=== PATIENT | female | born 2000 | race Caucasian/White ===

== ENCOUNTER 2020-11-19 13:04 | Outpatient (REF) | payer BC, SELFPAY ==
[2020-11-19 15:13] LABS: MANUAL DIFF FLAG NO
[2020-11-19 15:15] LABS: Basophils Percent Auto 0.5 % (0-2); Eosinophils Absolute Auto 0.2 X10*3/uL (0.0-0.4); Eosinophils Percent Auto 2.2 % (0-4); Hematocrit 33.8 % (37-47); Hemoglobin 11.3 g/dl (12.0-16.0); Imm Gran Abs Auto 0.01 X10*3/uL (0.00-0.03); Imm Gran Pct Auto 0.1 % (0.0-0.4); Lymphocytes Absolute Auto 2.2 X10*3/uL (1.2-4.9); Lymphocytes Percent Auto 29.5 % (20-40); Mean Corpuscular HGB Conc 33.4 g/dl (31.0-35.0); Mean Corpuscular Hemoglobin 29.4 pg (27.0-33.0); Mean Platelet Volume 11.7 fL (9.4-12.3); Monocytes Absolute Auto 0.5 X10*3/uL (0.1-1.2); Monocytes Percent Auto 7.1 % (2-11); Neutrophils Absolute Auto 4.6 X10*3/uL (2.0-8.3); Neutrophils Percent Auto 60.6 % (45-73); Platelet Count 307 X10*3/uL (160-400); Red Blood Count 3.84 X10*6/uL (4.20-5.50); Red Cell Distribution Width 13.3 % (11.0-16.0); White Blood Count 7.6 X10*3/uL (4.8-10.8)
[2020-11-19 15:44] LABS: Alanine Aminotransferase 17 U/L (0-31); Albumin Level 4.3 g/dL (3.5-5.0); Alkaline Phosphatase 66 U/L (39-117); Anion Gap 12 (12-20); Aspartate Amino Transferase 14 U/L (5-31); Bilirubin Total 0.8 mg/dL (0.0-1.0); Blood Urea Nitrogen 11 mg/dL (9-16); Calcium 9.9 mg/dL (8.4-10.2); Carbon Dioxide 26 mmol/L (22-29); Chloride 106 mmol/L (96-108); Cholesterol 141 mg/dL; Estimated Glomerular Filt Rate > 60; Glucose Fasting 104 mg/dL (60-99); HDL Cholesterol 49 mg/dL; LDL Cholesterol Calculated 85 mg/dl; Potassium 4.1 mmol/L (3.3-5.1); Sodium 140 mmol/L (135-145); Total Protein 7.5 g/dL (6.5-8.0); Triglycerides 39 mg/dL
[2020-11-19 16:00] LABS: TSH reflex Free T4 0.87 uIU/mL (0.32-4.0); Vitamin D 25-OH Total 16.7 ng/mL (>30)
[2020-11-19 16:16] LABS: Folate 11.6 ng/mL (> or = 4.0); Vitamin B12 1058 pg/mL (200-900)
== END 2020-11-19 13:05 | disposition home or self-care (01) ==
LOC: HO.HMGCLDS 13:04
PROVIDERS: PCP Internal Medicine; Visit Provider Internal Medicine
DX: Z00.00 Encounter for general adult medical examination without abnormal findings (principal)
CPT/HCPCS: 36415; 80053; 80061; 82306; 82607; 82746; 84443; 85025

== ENCOUNTER 2021-03-18 12:24 | Emergency (ER) | payer BC, SELFPAY ==
[2021-03-18 12:26] VITALS: BP 109/78; PULSE 85; RESP 18; TEMP 36.8; O2SAT 99; BMI 16.1
== END 2021-03-18 14:11 | disposition left against medical advice (07) ==
PROVIDERS: Emergency Provider Emergency Medicine; PCP Internal Medicine
DX: R10.9 Unspecified abdominal pain (principal); R11.10 Vomiting, unspecified
CPT/HCPCS: 99281

== ENCOUNTER 2021-03-29 12:57 | Outpatient (REF) | payer BC, SELFPAY | END 2021-03-29 12:58 | disposition home or self-care (01) | LOC: HO.HMGCLDS 12:57 | PROVIDERS: PCP Internal Medicine; Visit Provider Internal Medicine | DX: Z20.822 Contact with and (suspected) exposure to COVID-19 (principal) | CPT/HCPCS: C9803; U0003; U0005 ==

== ENCOUNTER 2021-07-17 14:44 | Outpatient (REF) | payer BC, SELFPAY ==
[2021-07-17 15:15] LABS: Binax Internal Control QC Valid; Binax Now Covid-19 Ag Negative (Negative)
[2021-07-17 16:28] LABS: Hematocrit 36.3 % (37.0-47.0); Hemoglobin 12.1 g/dl (12.0-16.0); Mean Corpuscular HGB Conc 33.3 g/dl (31.0-35.0); Mean Corpuscular Hemoglobin 29.3 pg (27.0-33.0); Mean Corpuscular Volume 87.9 fL (80.0-98.0); Mean Platelet Volume 11.9 fL (9.4-12.3); Platelet Count 233 X10*3/uL (160-400); Red Blood Count 4.13 X10*6/uL (4.20-5.50); Red Cell Distribution Width 13.2 % (11.0-16.0)
[2021-07-17 16:40] LABS: Alanine Aminotransferase 12 U/L (0-31); Albumin Level 4.5 g/dL (3.5-5.0); Alkaline Phosphatase 79 U/L (39-117); Aspartate Amino Transferase 15 U/L (5-31); Bilirubin Direct 0.4 mg/dL (0.0-0.5); Bilirubin Total 0.8 mg/dL (0.0-1.0); Total Protein 7.8 g/dL (6.5-8.0)
[2021-07-17 17:02] LABS: Erythrocyte Sedimentation Rate 11 MM/HR (0-20)
== END 2021-07-17 14:45 | disposition home or self-care (01) ==
LOC: HO.HMGCLDS 14:44
PROVIDERS: PCP Internal Medicine; Visit Provider Internal Medicine
DX: J06.9 Acute upper respiratory infection, unspecified (principal); R50.9 Fever, unspecified
CPT/HCPCS: 80076; 84443; 85027; 85652

== ENCOUNTER 2021-10-25 12:14 | Outpatient (REF) | payer BC, SELFPAY ==
[2021-10-25 12:41] LABS: Binax Now Covid-19 Ag Negative (Negative)
[2021-10-25 12:42] LABS: Binax Internal Control QC Valid
== END 2021-10-25 12:15 | disposition home or self-care (01) ==
LOC: HO.HMGCLDS 12:14
PROVIDERS: PCP Internal Medicine; Visit Provider Physician Assistant
DX: B34.9 Viral infection, unspecified (principal); Z20.822 Contact with and (suspected) exposure to COVID-19
CPT/HCPCS: 87811; C9803

== ENCOUNTER 2022-10-21 10:26 | Emergency (ER) | payer BC, SELFPAY ==
[2022-10-21 10:28] VITALS: BP 116/71; PULSE 87; RESP 16; TEMP 35.7; O2SAT 99; BMI 16.8
--- NOTE | 2022-10-21 11:43 | ED_ITS ---
HPI - Allergic Reaction General Chief complaint: Allergic Reaction Stated complaint: allergic reaction? Time Seen by Provider: 10/21/22 11:15 Source: patient Mode of arrival: ambulatory Limitations: no limitations History of Present Illness HPI narrative: patient is a 22-year-old female who presents emergency department for evaluation of potential allergic reaction. patient states that she awoke yesterday cleans ed her face with her normal face wash and soon thereafter she went out to eat with some friends. she denies any new foods or potential allergens. She felt her face becoming itchy but did not notice any redness or swelling. Yesterday evening she noticed swelling to her cheeks in the bilateral eyes. She took oral Benadryl last night without any improvement. Today she woke with increased swelling to the bilateral eyes. She denies upper respiratory symptoms, difficulty breathing, chest pain. Denies any known allergens. Denies any new facial creams, skin care products, make- up, detergent. Related Data Home Medications Medication Instructions Recorded Confirmed ferrous sulfate 325 mg (65 mg 325 mg PO DAILY 07/17/21 07/17/21 iron) tablet (FeroSul) multivitamin 1 tab PO DAILY 10/25/21 Previous Rx's Medication Instructions Recorded cholecalciferol (vitamin D3) 1,250 1,250 mcg PO QWEEK 90 days #13 caps 02/20/21 mcg (50,000 unit) capsule benzonatate 100 mg capsule 100 mg PO BID PRN cough #14 caps 10/25/21 prednisone 20 mg tablet 40 mg PO DAILY 5 days #10 tabs 10/25/21 epinephrine 0.3 mg/0.3 mL 0.3 mg (0.3 mL) IM Q4H PRN 10/21/22 injection, auto-injector (EpiPen) anaphylaxis #2 ea loratadine 10 mg tablet 10 mg PO DAILY #10 tabs 10/21/22 prednisone 20 mg tablet 20 mg PO DAILY #5 tabs 10/21/22 Allergies Allergy/AdvReac Type Severity Reaction Status Date / Time No Known Allergies Allergy Verified 10/25/21 11:46 Review of Systems Review of Systems: Yes all other systems are reviewed and are negative PMFSH Past Medical History Attestation statement: The following information was validated with the patient. Source: old records reviewed Medical History Acne comedone Underweight Surgical History No pertinent past surgical history Social History Social History Housing: House e-Cigarette/Vaping Use: Never Used Second Hand Smoke Exposure: No Advance Directives: No Advance Directives Information Provided: Yes service: No Current occupational status: employed Current occupation: daycare Current occupational exposures/hazards: No Physical Exam ED Vital Signs: Vital Signs - 24 hr 10/21/22 10:28 Temperature 96.3 F L Pulse Rate 87 Respiratory Rate 16 Blood Pressure 116/71 Pulse Oximetry 99 Oxygen Delivery Method Room Air BMI result Body Mass Index 16.8 Appearance: Alert.?Oriented to person, place and time. No acute distress.?Normal affect. Eyes: Pupils equal, round and reactive to light. EOMI. No nystagmus.? Edema of the bilateral periorbital region ENT: TM normal bilaterally. Pharynx normal.?? Uvula midline. No trismus. No drooling Neck: Normal inspection.? Neck supple. nose cervical lymphadenopathy?? CVS: Heart sounds normal. Normal heart rate and rhythm.? Pulses normal.?? Respiratory: No respiratory distress.? Lung sounds clear to auscultation bilaterally?? Abdomen: Soft and non-tender. Normoactive bowel sounds. Skin: Skin warm and dry.? Normal skin color.? ? Extremities: No lower extremity edema.? Neuro: Moves all extremities spontaneously. Sensation intact bilaterally. CN II- XII intact. No focal neuro deficits. Ambulates with normal steady gait. Medical Decision Making Medical Decision Making MDM Narrative: Patient is a 22-year-old female presents emergency department for evaluation of bilateral eye swelling. Patient is without any foreign body sensation, no drainage from the eye, no acute trauma, lower suspicion for any corneal abrasion foreign body present. Exam is not consistent with periorbital or orbital cellulitis. Edematous upper eyelids, not consistent with acute blepharitis, appears likely to be allergy type reaction. At this time allergen is unknown. There is no respiratory compromise. She speaking clear full sentences. No indication of anaphylaxis. Discussed outpatient management with oral antihistamine in addition to course of steroids. Provided with prescription for EpiPen in strict indications on when to use and prompt evaluation in the emergency department after use. Advised outpatient follow-up with primary care provider/potential referral for decating machine operator. Reviewed worrisome signs and symptoms that would warrant re-evaluation in the emergency department. All questions answered. Stable for discharge. Differential Diagnosis Differential Diagnoses: The differential diagnosis associated with the presentation includes (Conjunctivitis, blepharitis, periorbital cellulitis, orbital cellulitis, angioedema, acute allergic reaction, anaphylaxis) Independent Historian Clinical information obtained from an independent historian. History obtained from or confirmed by: Friend (Patient's friend is present at bedside who confirms history as per patient's HPI) Prescription Management I considered prescription management with: Other (Antihistamine, EpiPen) Discharge Plan Discharge Clinical Impression: Allergic reaction Patient Disposition: Home, Self-Care Instructions: General Allergic Reaction (ED) Additional Instructions: as discussed, it is concerning that you are having a potential allergic reaction, at this time it is unclear what this to be a reaction to it. Please take loratadine and prednisone as prescribed. I have sent prescription for an EpiPen to your pharmacy, this is to be used only if you are having swelling to the face with difficulty breathing, sensation is though your throat is closing. If you need to use your EpiPen you are to come promptly to the emergency department right afterwards. Please follow-up with your primary care provider. Return back to emergency department any new or worsening symptoms or concerns. Prescriptions: New loratadine 10 mg tablet 10 mg PO DAILY Qty: 10 0RF prednisone 20 mg tablet 20 mg PO DAILY Qty: 5 0RF epinephrine [EpiPen] 0.3 mg/0.3 mL auto-injector 0.3 mg IM Q4H PRN (Reason: anaphylaxis) Qty: 2 0RF No Action cholecalciferol (vitamin D3) 1,250 mcg (50,000 unit) capsule 1,250 mcg PO QWEEK 90 Days Qty: 13 0RF multivitamin Tablet 1 tab PO DAILY prednisone 20 mg tablet 40 mg PO DAILY 5 Days Qty: 10 0RF benzonatate 100 mg capsule 100 mg PO BID PRN (Reason: cough) Qty: 14 0RF ferrous sulfate [FeroSul] 325 mg (65 mg iron) tablet 325 mg PO DAILY Interventions: ED Discharge Assessment Last Done: 10/21/22 12:04 Discharge Date/Time: 10/21/22 12:04
== END 2022-10-21 12:04 | disposition home or self-care (01) ==
PROVIDERS: Emergency Provider Student in an Organized Health Care Education/Training Program; PCP Family Medicine
DX: L50.0 Allergic urticaria (principal)
CPT/HCPCS: 99283

== ENCOUNTER 2023-02-12 19:09 | Outpatient (REF) | payer BC, SELFPAY | END 2023-02-12 19:10 | disposition home or self-care (01) | LOC: HO.CHCLNP 19:09 | PROVIDERS: Visit Provider Family Medicine | DX: Z12.4 Encounter for screening for malignant neoplasm of cervix (principal) | CPT/HCPCS: 88142 ==

== ENCOUNTER 2024-01-15 12:50 | Outpatient (AMB) | payer BC, SELFPAY ==
--- NOTE | 2024-01-15 13:09 | MHC.OFFWIV ---
Intake Vital Signs 01/15/24 13:10 Height 5 ft 3 in Weight 92 lb BMI 16.3 BP 110/68 Blood Pressure Location Lt brachial Position Sitting Pulse 80 Pulse Source Pulse Oximeter Temp 98.9 F Temp Source Oral Pulse Oximetry (%) 97 Oxygen Delivery Method Room Air Intake Visit Reasons: EP-severe cough & chest pain, wheezing Intake Note: Patient here for severe cough, chest pain when coughing and wheezing that has been present for about 1 week. Patient Tobacco Use Status: Never used Tobacco Allergies No Known Allergies Allergy (Verified 01/15/24 13:10) Do you need a note to return to daycare/school/sports/work: No HPI HPI Comments History of Present Illness Details Patient is a 23-year-old female complaining of 9 days of a cough which she says wakes up in the middle of the night and she can hear herself wheezing and is causing her chest pain. She states she tested 9 days ago and was positive for COVID. During that time she had fevers which have since resolved. She denies any sinus pain, ear pain or headaches. She denies a history of asthma. She states she has been taking Mucinex ibuprofen and some other medication that her mom gave her but none of it seems to be helping. She states she has this lingering cough that will not go away. PFSH Medical History Acne comedone Underweight Surgical History No pertinent past surgical history Social History Housing: House Patient Tobacco Use Status: Never used Tobacco e-Cigarette/Vaping Use: Never Used Second Hand Smoke Exposure: No service: No Current occupational status: employed Current occupation: daycare Current occupational exposures/hazards: No Review of Systems Const All systems reviewed & are unremarkable except as noted in HPI and below Physical Exam Vital Signs: Last Vital Signs Temp 98.9 F 01/15/24 13:10 Pulse 80 01/15/24 13:10 BP 110/68 01/15/24 13:10 Pulse Ox 97 01/15/24 13:10 Oxygen Delivery Method Room Air 01/15/24 13:10 BMI result Body Mass Index 16.3 Const General: cooperative, healthy appearing, comfortable and no acute distress Orientation/consciousness: patient oriented x3 Limitations: no limitations HEENT Head: Yes normal to inspection Ears: hearing grossly normal bilaterally, external ears normal and TM's normal bilaterally General nose exam: Normal external nose present, Normal nares present and No nasal discharge present Face and sinus: Yes normal facial exam and Yes sinuses nontender Mouth: Normal oral and palatal mucosa present and moist mucous membranes Throat: Yes tonsils normal, Yes uvula midline and Yes posterior oropharynx abnormal (Erythema) Eyes General: appearance normal, both eyes and all related structures Neck Neck: Yes normal visual inspection Resp Effort & Inspection: normal respiratory effort, able to speak in complete sentences, no respiratory distress, not tachypneic, no tripod positioning and no use of accessory muscles Auscultation: clear to auscultation bilaterally Cardio Rate: regular rate Rhythm: regular rhythm Heart sounds: normal S1 and S2 Skin General skin exam: no rashes or lesions noted Neuro General: patient oriented x3 Extrem General: Yes normal to inspection and Yes no clubbing, cyanosis or edema Assessment & Plan Assessment & Plan (1) Atypical pneumonia: Code(s): J18.9 - Pneumonia, unspecified organism Plan: Vital signs are stable, patient well-appearing, lung sounds clear, likely atypical pneumonia we will treat with a Z-Navneet and sent inhaler. Educated patient how and when to use the inhaler. Recommended continuing [id number] medications for her symptoms. Plan See above Medications: New azithromycin For 250 mg dose pack: take 500 mg today (day 1), then 250 mg for 4 days (days 2-5) PO 6 tabs 0RF albuterol sulfate 90 mcg/actuation (Ventolin HFA) 2 puffs inhalation Q4-6H PRN 8.5 grams 0RF shortness of breath or wheezing Coding Level of Care Code New Pt Level 3 (44389) Diagnoses Atypical pneumonia J18.9
[2024-01-15 13:10] VITALS: BP 110/68; PULSE 80; TEMP 37.2; O2SAT 97; BMI 16.3
== END 2024-01-15 14:59 | disposition home or self-care (01) ==
PROVIDERS: PCP Family Medicine; Visit Provider Physician Assistant
DX: J18.9 Pneumonia, unspecified organism (principal)

== ENCOUNTER → 2024-01-15 12:50 | Outpatient (BNVA) | payer BC, SELFPAY | PROVIDERS: PCP Family Medicine; Visit Provider Physician Assistant ==

== ENCOUNTER 2024-04-29 08:35 | Outpatient (AMB) | payer BC, SELFPAY ==
--- OUTSIDE RECORDS SUMMARY | 2024-04-29 08:50 | XMS_ITS | Encounter Summary ---
Author Organization [facility] Address [address] [place] [address] Phone Care Team Providers Care Tool Grinder Operator Surface Name Role Phone Meka Cook MD Primary Care Provider Unavailab le Encounter Details Date Type Department Care Team (Late st Contact Info) Description 12/19/2015 Documentation [facility] [place] [address] [place] [address] Family Medicine, Physician [address] [place] [address] Social History Tobacco Use Types Packs/Day Years Used Date Smoking Tobacco: Never Comments:Never smoker Comments Unknown Sex and Gender Information Value Date Recorded Sex Assigned at Not on file Legal Sex Female 5:11 PM EDT Gender Identity Not on file Sexual Orientation Not on file documented as of this encounter Plan of Treatment Not on file documented as of this encounter Visit Diagnoses Not on filedocumented in this encounter Care Teams Tool Grinder Operator Surface Relationship Specialty Start Date End Date Meka Cook MD PCP - General Pediatrics 12/10/17 04/09/19 documented as of this encounter
--- OUTSIDE RECORDS SUMMARY | 2024-04-29 08:50 | XMS_ITS | Clinical Summary ---
Author Organization [employer] Address [address] [place] [address] Care Team Providers Care Beehive Kiln Supervisor Name Role Phone Aide Moon MD Primary Care Provider [phone] Allergies No known active allergies Medications spironolactone (Aldactone) 100 MG tabletIndication s:Acne vulgaris Take 1 tablet (100 mg) by mouth in the morning. 30 tablet 11 10/30/2022 Active norgestimate-eth inyl estradiol (Ortho Tri-Cyclen,Alycia ssa) 0.18/0.215/0.25 MG-35 MCG tabletIndication s:Acne vulgaris Take 1 tablet by mouth in the morning. 28 tablet 2 07/09/2023 5 Active Active Problems Problem Noted Date Diagnosed Date Cervical cancer screening 02/12/2023 Assessment & Plan (02/12/2023 4:46 PM EST): Young adult female for LAM[employer] physical: Normal exam, Follow up PAP results. Consider PAP smear in the next four years if today's normal. Routine PAP/Will check for: Chlam./Gono.-RNA. No concerns for domestic violence. Acne vulgaris 06/07/2022 Rosacea 06/07/2022 Anxiety 12/06/2017 Overview (06/07/2022): Child Scared Screen:45 Parent Scared Screen: 35 Possibly associated with depression. Denies SI or HI currently: Has had fleeting thoughts of suicide in the past. Referred to [facility] for therapy. (Lucila Damian) Follow up with PCP in 2 months. Last Assessment & Plan: Improved with therapy - continues to see therapist Ophelia 05/04/2009 Immunizations Name Administration Dates Next Due DTaP, 5 pertussis antigens 04/13/2003,,1999,06/19,1999 HPV, Quadrivalent 09/18/2012,09/27/2011,09/20/19 11 Hep A, ped/adol, 2 dose 10/01/2013,09/19/2010 Hep B, Adolescent or Pediatric 1999,1999,1999 Hib (PRP-T) 08/23/2000, 0,1999,04/18 IPV 04/13/2003, 1,1999,04/18 Influenza injectable quadriv alent IIV4 with preservative 01/06/2019,02/10/2014 Influenza injectable quadriv alent preservative free 02/12/2023,12/20/2017,02/21/2017,12/15,12/09/2014 Influenza, IIV3, injectable 01/03/2009 Influenza, Split (incl. jose fied surface antigen) 12/29/2012,01/03/2011 Influenza, live, intranasal 01/22/2012 MMR 04/13/2003,02/28/2000 Meningococcal MCV4P ACYW-135 12/16/2015,09/20/19 11 Novel [id number], all formulations 02/24/2009 PPD Test 10/18/2017,10/10/2017 Tdap 06/07/2022,09/19/2010 Varicella 09/19/2010,02/28/2000 Social History Tobacco Use Types Packs/Day Years Used Date Smoking Tobacco: Never Passive Smoke Exposure: Never Smokeless Tobacco: Never Tobacco Cessation:Counseling Given: Not Answered Alcohol Use Standard Drinks/Week Comments Never 0 (1 standard drink = 0.6 oz pur e alcohol) Depression Answer Date Recorded Patient Health Questionnaire-9 Score 8 06/07/2022 Housing Stability Answer Date Recorded What is your housing situation today? I have cecilia teixeira 01/22/[address] you li ve. Do you have problems with any of the following? None of the above 01/22/2023 Food Insecurity Answer Date Recorded Within the past 12 months, y ou worried that your food would run out before you got money to buy more: Never True 01/22/2023 Within the past 12 months,th e food you bought just didn't last and you didn't have enough money to get more: Never True Transportation Answer Date Recorded In the past 12 months, has l ack of transportation kept you from medical appts, meetings, work or from getting things needed for daily living? No 01/22/2023 Utilities Answer Date Recorded In the past 12 months, has t he electric, gas, oil or water company threatened to shut off services in your home? No 01/22/2023 Depression Answer Date Recorded Patient Health Questionnaire-2 Score 2 06/07/2022 Comments No Sex and Gender Information Value Date Recorded Sex Assigned at Female 05/09/2022 10:26 AM EST Legal Sex Female 10:22 AM EST Gender Identity Female 05/09/2022 10:26 AM EST Sexual Orientation Straight 05/09/2022 10 :26 AM EST Last Filed Vital Signs Vital Sign Reading Time Taken Comments Blood Pressure 108/70 07/09/2023 9:50 AM EDT Pulse 86 07/09/2023 9:50 AM EDT Temperature 36.2 ??C (97.1 ??F) 07/09/2023 9:50 AM ED T Respiratory Rate 18 07/09/2023 9:50 AM EDT Oxygen Saturation 98% 07/09/2023 9:50 AM EDT Inhaled Oxygen Concentration - - Weight 42.2 kg (93 lb) 07/09/2023 9:50 AM EDT Height 161.3 cm (5' 3.5 ) 07/09/2023 9:50 AM EDT Body Mass Index 16.22 07/09/2023 9:50 AM EDT Plan of Treatment Health Maintenance Due Date Last Done Comments Alcohol/Substance Use Screening 2011 Depression Screening 06/08/2023 06/07/2022, 06/08/19 SDOH Screening 06/08/2023 06/07/2022 COVID-19 Vaccine ( season) 2023 Influenza Vaccine (#1) 2023 3, 01/06/2019, 12/20/2017, Additional history exists Tobacco Screening 07/08/2024 07/09/2023 Pap Smear 02/12/2026 02/12/2023 DTaP/Tdap/Td Vaccines (8 - Td or Tdap) 06/07/2032 06/07/2022, 09/19/2010, 04/13/2003, Additional history exists Zoster Vaccines (1 of 2) 2049 RSV Patients and Patients Aged 60 years or older (1 - 1-dose 75+ series) 2074 Hepatitis B Vaccines Completed 1999, 1999, 1999 HIB Vaccines Completed 08/23/2000, 08/06, 1999, Additional history exists IPV Vaccines Completed 04/13/2003, 08/06, 1999, Additional history exists HPV Vaccines Completed 09/18/2012, 09/07, 09/19/2010 Hepatitis A Vaccines Completed 10/01/2013, 09/20/19 11 Meningococcal Vaccine Completed 12/16/2015, 011 HIV Screening Completed 06/11/2022 Hepatitis C Screening Completed 06/11/2022 Pneumococcal Vaccine: Pediatrics (0 to 5 Years) and At-Risk Patients (6 to 64 Years) Aged Out No longer eligible based on patient's age to complete this topic RSV under 20 months Aged Out No longe r eligible based on patient's age to complete this topic Rotavirus Vaccines Aged Out No longer eligible based on patient's age to complete this topic Procedures Procedure Name Priority Date/Time Associated Diagnosis Comments PAP SMEAR Routine 02/12/2023 4:41 PM EST Cervical cancer screening HEPATITIS C AB W/REFL TO HCV RNA, QN, PCR Routine 06/11/2022 11:37 AM EST Encounter for health-related screening HIV 1/2 ANTIGEN/ANTIBODY, FOURTH GENERATION W/RFL Routine 06/11/2022 11:37 AM EST Encounter for health-related screening from Last 3 Months or Most Recently Relevant to Health Maintenance Results * Pap Smear (02/12/2023 4:41 PM EST) Swab Cervix uteri structure / Unknown 02/12/2023 4:41 PM EST 02/13/2023 7:30 AM EST Narrative [facility] - 02/26/2023 11:02 AM EST ----- ------- Name: Radha Teixeira ? Age/Sex: 22/F ? : 2000 Unit#: [id number] ?? Attend Dr: Aide Moon MD ?Re02/12/23 ?Status: DEP REF ? Location: HO.CHCLNP ? Disch: ? ----- ------- SPEC : [id number] ?RECD: 02/13/23-729 ? STATUS: ??SOUT ? REQ NUM: [id number] ? BRIDGETTE: 02/12/23-1640 ? SUBM DR: Aide Moon MD ? ENTERED: ??02/13/23 ?SP TYPE: Pap Smr ?OTHR : ? ORDERED: ??Pap Smear ? Interpretation ?? Satisfactory for evaluation. ?? Mild inflammation. ?? Negative for intraepithelial lesion or malignancy. ?Clinical Information LMP: 01/31/2023 Previous PAP test: Unknown date/findings ? Material Received ?? ThinPrep-Cervical ----- ------- Signed (signature on file) CASSANDRA Reyes (ASCP) 02/26/23 1102 ? ----- ------- ? END OF REPORT ? Aide Moon MD LAB CYTOLOGY ORDERABLES Final Result [facility] [address] [place] [address] [phone] * Hepatitis C Antibody with Reflex to HCV, RNA, Quantitative, Real-Time PCR (06/11/2022 11:37 AM EST) Hepatitis C Antibody NON-REACT DARRON NON-REACT DARRON [facility] [place] [employer] Index 0.08 <1.00 [facility] [place] [employer] Comment: HCV antibody was non-reactive. There is no laboratory evidence of HCV infection. In most cases, no further action is required. However, if recent HCV exposure is suspected, a test for HCV RNA (test code 07056) is suggested. For additional information please refer to http://education.Keukey/faq/KQH17f9 (This link is being provided for informational/ educational purposes only.) Blood Venous blood specimen / Unknown 06/11/2022 11:37 AM EST 06/11/2022 11:38 AM EST Result [facility] Aide Moon MD LAB BLOOD ORDERABLES Final Re sult [facility] [address] [place] [address] [facility] [place] [employer] [facility] [address], ([address]) [place] [address] * HIV-1/2 Antigen and Antibodies, Fourth Generation, with Reflexes (06/11/2022 11:37 AM EST) HIV Antigen/Antibody, 4th Generation NON-REAC TIVE NON-REAC TIVE [facility] [place] [employer] Comment: HIV-1 antigen and HIV-1/HIV-2 antibodies were not detected. There is no laboratory evidence of HIV infection. PLEASE NOTE: This information has been disclosed to you from records whose confidentiality may be protected by state law. ??If your state requires such protection, then the state law prohibits you from making any further disclosure of the information without the specific written consent of the person to whom it pertains, or as otherwise permitted by law. A general authorization for the release of medical or other information is NOT sufficient for this purpose. ?? For additional information please refer to http://education.Keukey/faq/HUZ914 (This link is being provided for informational/ educational purposes only.) The performance of this assay has not been clinically validated in patients less than 2 years old. Blood Venous blood specimen / Unknown 06/11/2022 11:37 AM EST 06/11/2022 11:38 AM EST us Aide Moon MD LAB BLOOD ORDERABLES Final Re sult [facility] [address] [facility], [place] [address] [facility] [address] [place] [address] from Last 3 Months or Most Recently Relevant to Health Maintenance Insurance [facility] PPO Care Teams Beehive Kiln Supervisor Relationship Specialty Start Date End Date Aide Moon MD [address] [place] [address] PCP - General Family Medicine 06/07/22
--- OUTSIDE RECORDS SUMMARY | 2024-04-29 08:50 | XMS_ITS | Encounter Summary ---
Author Organization [facility] Address [address] [place] [address] Phone Care Team Providers Care Police Dispatcher Name Role Phone Meka Cook MD Primary Care Provider Unavailab le Encounter Details Date Type Department Care Team (Late st Contact Info) Description 12/19/2015 Documentation [facility] [place] [address] [place] [address] Family Medicine, Physician [address] [place] [address] Social History Tobacco Use Types Packs/Day Years [...] on filedocumented in this encounter Care Teams Police Dispatcher Relationship Specialty Start Date End Date Meka Cook MD PCP - General Pediatrics 12/10/17 04/09/19 documented as of this encounter
--- OUTSIDE RECORDS SUMMARY | 2024-04-29 08:50 | XMS_ITS | Encounter Summary ---
Author Organization [facility] Address [address] [place] [address] Phone Care Team Providers Care Laboratory Miller Name Role Phone Meka Cook MD Primary Care Provider Unavailab le Encounter Details Date Type Department Care Team (Late st Contact Info) Description 12/14/2014 Documentation [facility] [place] Medicine [address] [place], [place] [id number] Family Medicine, Physician [address] [place] [address] Social History Tobacco Use Types Packs/Day Years Used Date Smoking Tobacco: Never Assessed Comments Unknown Sex and Gender Information Value Date Recorded Sex Assigned at Not on file Legal Sex Female 5:11 PM EDT Gender Identity Not on file Sexual Orientation Not on file documented as of this encounter Plan of Treatment Not on file documented as of this encounter Visit Diagnoses Not on filedocumented in this encounter Care Teams Laboratory Miller Relationship Specialty Start Date End Date Meka Cook MD PCP - General Pediatrics 12/10/17 04/09/19 documented as of this encounter
--- OUTSIDE RECORDS SUMMARY | 2024-04-29 08:50 | XMS_ITS | Encounter Summary ---
Author Organization [employer] Address [address] [place] [address] Care Team Providers Care Manager Of Change Name Role Phone Aide Moon MD Primary Care Provider [phone] Reason for Visit * Reason Comments Med Refill Encounter Details Date Type Department Care Team ([facility] st Contact Info) Description 08/15/2022 Refill [facility] MED & PEDS [address] [place] [address] Taylor Brown MD [address] [place] [address] Acne vulgaris Social History Tobacco Use Types Packs/Day Years Used Date Smoking Tobacco: Never Passive Smoke Exposure: Never Smokeless Tobacco: Never Alcohol Use Standard Drinks/Week Comments Never 0 (1 standard drink = 0.6 oz pur e alcohol) Depression Answer Date Recorded Patient Health Questionnaire-9 Score 8 06/07/2022 Depression Answer Date Recorded Patient Health Questionnaire-2 Score 2 06/07/2022 Comments Unknown Sex and Gender Information Value Date Recorded Sex Assigned at Female 05/09/2022 10:26 AM EST Legal Sex Female 10:22 AM EST Gender Identity Female 05/09/2022 10:26 AM EST Sexual Orientation Straight 05/09/2022 10 :26 AM EST COVID-19 Exposure Response Date Recorded In the last 10 days, have yo u been in contact with someone who was confirmed or suspected to have Coronavirus/COVID-19? No / Unsure 07/17/2022 11:00 AM EDT documented as of this encounter Plan of Treatment Not on file documented as of this encounter Visit Diagnoses Diagnosis Acne vulgaris Other acne documented in this encounter Additional Health Concerns Assessment Noted Time PHQ-9 Depression Total Score: 8 06/08/19 23 1:12 PM EST documented as of this encounter Care Teams Manager Of Change Relationship Specialty Start Date End Date Aide Moon MD [address] [place] [address] PCP - General Family Medicine 06/07/22 documented as of this encounter
--- OUTSIDE RECORDS SUMMARY | 2024-04-29 08:50 | XMS_ITS | Encounter Summary ---
Author Organization [facility] Address [address] [place] [address] Phone Care Team Providers Care Analytical Lead Name Role Phone Meka Cook MD Primary Care Provider Unavailab le Encounter Details Date Type Department Care Team (Late st Contact Info) Description 12/19/2015 Documentation [facility] [place] Family Medicine [address] [place] [address] Family Medicine, Physician [address] [place] [address] Social History Tobacco Use Types Packs/Day Years [...] on filedocumented in this encounter Care Teams Analytical Lead Relationship Specialty Start Date End Date Meka Cook MD PCP - General Pediatrics 12/10/17 04/09/19 documented as of this encounter
--- OUTSIDE RECORDS SUMMARY | 2024-04-29 08:50 | XMS_ITS | Encounter Summary ---
Author Organization [employer] Address [address] [place] [address] Care Team Providers Care Supervisor Travel Trailer Name Role Phone Aide Moon MD Primary Care Provider [phone] Encounter Details Date Type Department Care Team (Late st Contact Info) Description 02/26/2023 Abstract [facility] MEDICINE [address] [place] [address] Aide Moon MD [address] [place], [place] [id number] Social History Tobacco Use Types Packs/Day Years [...] Orientation Straight 05/09/2022 10 :26 AM EST documented as of this encounter Plan of Treatment Not on file documented as of this encounter Visit Diagnoses Not on filedocumented in this encounter Additional Health Concerns Assessment Noted Time PHQ-9 Depression Total Score: 8 06/08/19 23 1:12 PM EST documented as of this encounter Care Teams Supervisor Travel Trailer Relationship Specialty Start Date End Date Aide Moon MD [address] [place] [address] PCP - General Family Medicine 06/07/22 documented as of this encounter
--- OUTSIDE RECORDS SUMMARY | 2024-04-29 08:50 | XMS_ITS | Encounter Summary ---
Author Organization [facility] Address [address] [place] [address] Phone Care Team Providers Care Catalogue Compiler Name Role Phone Meka Cook MD Primary Care Provider Unavailab le Encounter Details Date Type Department Care Team (Late st Contact Info) Description 02/11/2014 Documentation [facility] [place] Family Medicine [address] [place], [place] [phone] Family Medicine, Physician [address] [place] [address] Social History Tobacco Use Types Packs/Day Years [...] on filedocumented in this encounter Care Teams Catalogue Compiler Relationship Specialty Start Date End Date Meka Cook MD PCP - General Pediatrics 12/10/17 04/09/19 documented as of this encounter
--- OUTSIDE RECORDS SUMMARY | 2024-04-29 08:50 | XMS_ITS | Encounter Summary ---
Author Organization [facility] Address [address] [place] [address] Phone Care Team Providers Care Inner Diameter Grinder Tool Name Role Phone Meka Cook MD Primary Care Provider Unavailab le Encounter Details Date Type Department Care Team (Late st Contact Info) Description 02/11/2014 Documentation [facility] [place] Medicine [address] [place], [place] [phone] Family Medicine, Physician [address] [place] [address] Social History Tobacco Use Types Packs/Day Years [...] on filedocumented in this encounter Care Teams Inner Diameter Grinder Tool Relationship Specialty Start Date End Date Meka Cook MD PCP - General Pediatrics 12/10/17 04/09/19 documented as of this encounter
--- OUTSIDE RECORDS SUMMARY | 2024-04-29 08:50 | XMS_ITS | Encounter Summary ---
Author Organization [facility] Address [address] [place] [address] Phone Care Team Providers Care Fuel Conversion Technician Name Role Phone Meka Cook MD Primary Care Provider Unavailab le Encounter Details Date Type Department Care Team (Late st Contact Info) Description 08/09/2016 Documentation [facility] [place] Family Medicine [address] [place] [address] Family Medicine, Physician [address] [place] [address] Social History Tobacco Use Types Packs/Day Years [...] on filedocumented in this encounter Care Teams Fuel Conversion Technician Relationship Specialty Start Date End Date Meka Cook MD PCP - General Pediatrics 12/10/17 04/09/19 documented as of this encounter
--- OUTSIDE RECORDS SUMMARY | 2024-04-29 08:50 | XMS_ITS | Encounter Summary ---
Author Organization [facility] Address [address] [place] [address] Phone Care Team Providers Care Jackerman Name Role Phone Meka Cook MD Primary Care Provider Unavailab le Encounter Details Date Type Department Care Team (Late st Contact Info) Description 12/19/2015 Documentation [facility] [place] Family Medicine [address] [place] [address] Family Medicine, Physician [address] [place] [address] Social History Tobacco Use Types Packs/Day Years [...] on filedocumented in this encounter Care Teams Jackerman Relationship Specialty Start Date End Date Meka Cook MD PCP - General Pediatrics 12/10/17 04/09/19 documented as of this encounter
--- OUTSIDE RECORDS SUMMARY | 2024-04-29 08:50 | XMS_ITS | Encounter Summary ---
Author Organization [facility] Address [address] [place] [address] Phone Care Team Providers Care Purification Supervisor Name Role Phone Meka Cook MD Primary Care Provider Unavailab le Encounter Details Date Type Department Care Team (Late st Contact Info) Description 12/14/[address] [facility] [place] Family Medicine [address] [place], [place] [phone] Family Medicine, Physician [address] [place] [address] Social History Tobacco Use Types Packs/Day Years [...] on filedocumented in this encounter Care Teams Purification Supervisor Relationship Specialty Start Date End Date Meka Cook MD PCP - General Pediatrics 12/10/17 04/09/19 documented as of this encounter
--- OUTSIDE RECORDS SUMMARY | 2024-04-29 08:50 | XMS_ITS | Clinical Summary ---
Author Organization [facility] Address [address] [place] [address] Phone Care Team Providers Care Technology Recruiter Name Role Phone Unavailable Primary Care Provider Unavailabl e Allergies No known active allergies Medications cetirizine 10 MG tablet Take by mouth. 7 Active Selenium Sulfide 2.25 % shampooIndicatio ns:Seborrheic dermatitis of scalp Apply 1 application topically 2 (two) times a week. 1 Bottle 2 7 Active Additional Information Patient not taking.Reported on 07/14/2018 KETOTIFEN 0.025 % ophthalmic solutionIndicati ons:Allergic conjunctivitis, unspecified laterality INSTILL 1 DROP IN AFFECTED EYE(S) TWICE DAILY 5 mL 8 Active Additional Information Patient not taking.Reported on 07/14/2018 cyproheptadine 4 MG tablet TK 1 T PO TID 0 9 Active Active Problems Problem Noted Date Diagnosed Date Anxiety 12/06/2017 Overview (12/06/2017): Child Scared Screen:44 Parent Scared Screen: 34 Possibly associated with depression. Denies SI or HI currently: Has had fleeting thoughts of suicide in the past. Referred to [facility] for therapy. (Lucila Damian) Follow up with PCP in 2 months. Assessment & Plan (06/02/2018 12:40 PM EST): Improved with therapy - continues to see therapist Vitiligo 05/04/2009 Immunizations Name Administration Dates Next Due DTaP 5 04/13/2003, 1,1999,06/19,1999 H1N1 02/24/2009 HPV, Quadrivalent 09/18/2012,09/27/2011,09/20/19 11 Hep A, ped/adol 10/01/2013,09/19/2010 Hep B, ped/adol 1999,1999,1999 Hib (PRP-T) 08/23/2000, 0,1999,04/18 IPV 04/13/2003, 1,1999,04/18 Influenza Split 12/29/2012,01/03/2011 Influenza, injectable, quadrivalent 02/10/2014 Influenza, injectable, quadr ivalent, preservative free 12/20/2017,02/21/2017,12/16/2015,12/09 Influenza, injectable, trivalent 01/03/2009 Influenza, intranasal, trivalent 01/22/2012 MMR 04/13/2003,02/28/2000 Meningococcal Conj (Menactra) MCV4P 12/16/2015,0 09/19/2010 PPD Test 10/18/2017,10/10/2017 Tdap 09/19/2010 Varicella 09/19/2010,02/28/2000 Family History Medical History Relation Name Comments Diabetes Father borderline Diabetes Father's Brother Osteoarthritis Mother Brandon Teixeira Other Mother Brandon Teixeira RSD Diabetes Paternal Grandmother Allergies Sister seasonal Relation Name Status Comments Father Alive Father's Brother Mother Brandon Teixeira Alive Other No family histo ry of Obesity, No family history of Elevated cholesterol, No family history of Seizure disorder, No family history of Strabismus/amblyopia, No family history of Autism, No family history of Diabetes mellitus, No family history of Sudden /VA under age 55, No family history of Developmental dislocation of hip, No family history of Migraines, No family history of Deafness, No family history of ADD/ADHD, Family history of Diabetes mellitus, No family history of Asthma Paternal Grandmother Sister Alive Social History Tobacco Use Types Packs/Day Years Used Date Smoking Tobacco: Never Smokeless Tobacco: Never Comments:Never smoker Alcohol Use Standard Drinks/Week Comments No 0 (1 standard drink = 0.6 oz pur e alcohol) Hunger/Food Answer Date Recorded No 01/02/2020 Stable Housing Answer Date Recorded No 01/02/2020 Transportation Concerns Answer Date Rec orded No 01/02/2020 Hazards in Home Answer Date Recorded No 2020 Financing Utilities Answer Date Recorde d No 2020 Safety at Home Answer Date Recorded No 2020 Outside Support Answer Date Recorded No 2020 Understanding Health Concerns Answer Da te Recorded No 2020 Financing Health Concerns Answer Date R ecorded No 2020 Missing School or Work Answer Date Donald rded No 2020 Comments No Sex and Gender Information Value Date Recorded Sex Assigned at Not on file Legal Sex Female 5:11 PM EDT Gender Identity Not on file Sexual Orientation Not on file Last Filed Vital Signs Vital Sign Reading Time Taken Comments Blood Pressure 107/73 07/14/2018 11:36 AM EDT Pulse 84 07/14/2018 11:36 AM EDT Temperature 37.2 ??C (98.9 ??F) 07/14/2018 11:36 AM E DT Respiratory Rate - - Oxygen Saturation 100% 03/07/2018 4:42 PM EST Inhaled Oxygen Concentration - - Weight 42.6 kg (94 lb) 07/14/2018 11:36 AM EDT Height 160 cm (5' 3 ) 06/02/2018 11:09 AM EST Body Mass Index 16.65 06/02/2018 11:09 AM EST Plan of Treatment Health Maintenance Due Date Last Done Comments DTaP,Tdap,and Td Vaccines (7 - Td or Tdap) 09/19/2020 09/19/2010, 04/13/2003, 08/23/2000, Additional history exists Influenza Vaccines (#1) 2023 01/07/20 19, 12/20/2017, 02/21/2017, Additional history exists COVID-19 Vaccine ( season) 2023 Hepatitis B Vaccines Completed 1999, 1999, 1999 HIB Vaccines Completed 08/23/2000, 08/06, 1999, Additional history exists IPV Vaccines Completed 04/13/2003, 08/06, 1999, Additional history exists MMR Vaccines Completed 04/13/2003, 02/28/2000 Varicella Vaccines Completed 09/19/2010, 02/28/2000 HPV Vaccines Completed 09/18/2012, 09/07, 09/19/2010 Hepatitis A Vaccines Completed 10/01/2013, 09/20/19 11 Meningococcal Vaccine Completed 12/16/2015, 011 Men B Vaccine Aged Out No longer elig ible based on patient's age to complete this topic Pneumococcal Vaccine Aged Out No long er eligible based on patient's age to complete this topic Procedures * Due to [place] [employer] law, this organization might not be sharing sensitive test results. Procedure Name Priority Date/Time Associated Diagnosis Comments CHLAMYDIA AND GONORRHEA, AMPLIFIED Routine 06/03/2018 4:20 PM EST Special screening for bacterial and spirochetal disease from Last 3 Months or Most Recently Relevant to Health Maintenance Results * Due to [place] [employer] law, this organization might not be sharing sensitive test results. * Chlamydia and Gonorrhoea, Amplified (06/03/2018 4:20 PM EST) Chlamydia Trachomatis, DNA Probe NEGATIVE (NEG) [facility] Comment: No Chlamydia Trachomatis RNA detected in this patient's sample ? (REFERENCE RANGE/NORMAL VALUE: NOT DETECTED) ? Note: This test uses neuro ophthalmologist- mediated amplification method to detect rRNA from C. Trachomatis URINE GC AMP PROBE NEGATIVE (NEG) [facility] Comment: No Neisseria Gonorrhoeae RNA detected in this patient's sample ? (REFERENCE RANGE/NORMAL VALUE: NOT DETECTED) ? NOTE: This test uses neuro ophthalmologist-mediated amplification method to detect rRNA from N.Gonorrhoeae. A negative result does not preclude infection. In the case of a negative urine result, testing of an endocervical(female) or urethral (male) specimen is recommended if there is high clinical suspicion of infection. Due to very high sensitivity of Nucleic Acid Amplification Test, false positive results may occur. Therefore, specimen handling is extremely important. In patients in whom the disease is unlikely, additional sample for testing should be considered after an initial positive result. The performance characteristics of this test have not been evaluated in children. The Aptima Combo2 assay is not intended for the evaluation of suspected sexual abuse or for other medico-legal indications. The ordering provider should assess if the patient had consensual sex without risk of sexual abuse. Consult the [facility] if needed. Contact phone number . Therapeutic failure or success cannot be determined with the Aptima Combo2 assay since nucleic acid may persist following appropriate antimicrobial therapy. The Centers for Disease Control and Prevention (CDC) recommends confirmatory retesting using culture or a different nucleic acid amplification test when positive results occur, if indicated. Testing performed or reported by [facility], a Service of [facility], [address] [place] [address] Urine 06/03/2018 4:20 PM EST 06/03/2018 11:10 PM EST Meka Cook MD LAB MICROBIOLOGY - GENERAL ORDER PAMLELA Final Result [facility] from Last 3 Months or Most Recently Relevant to Health Maintenance Insurance [facility] NON PCC
--- OUTSIDE RECORDS SUMMARY | 2024-04-29 08:50 | XMS_ITS | Encounter Summary ---
Author Organization [facility] Address [address] [place] [address] Phone Care Team Providers Care Business Representative Name Role Phone Meka Cook MD Primary Care Provider Unavailab le Encounter Details Date Type Department Care Team (Late st Contact Info) Description 12/14/2014 Documentation [facility] [place] Family Medicine [address] [place], [place] [phone] Family Medicine, Physician [address] [place] [address] Social History Tobacco Use Types Packs/Day Years [...] on filedocumented in this encounter Care Teams Business Representative Relationship Specialty Start Date End Date Meka Cook MD PCP - General Pediatrics 12/10/17 04/09/19 documented as of this encounter
--- OUTSIDE RECORDS SUMMARY | 2024-04-29 08:50 | XMS_ITS | Encounter Summary ---
Author Organization [facility] Address [address] [place] [address] Phone Care Team Providers Care Cotton Feeder Name Role Phone Meka Cook MD Primary Care Provider Unavailab le Encounter Details Date Type Department Care Team (Late st Contact Info) Description 11/22/2016 Conversion Encounter [facility] - [address] [address] Social History Tobacco Use Types Packs/Day Years [...] on filedocumented in this encounter Care Teams Cotton Feeder Relationship Specialty Start Date End Date Meka Cook MD PCP - General Pediatrics 12/10/17 04/09/19 documented as of this encounter
--- OUTSIDE RECORDS SUMMARY | 2024-04-29 08:51 | XMS_ITS | Encounter Summary ---
Author Organization [facility] Address [address] [place] [address] Phone Care Team Providers Care Shot Blaster Name Role Phone Meka Cook MD Primary Care Provider Unavailab le Encounter Details Date Type Department Care Team (Late st Contact Info) Description 10/02/2013 Documentation [facility] [place] Family Medicine [address] [place], [place] [phone] Family Medicine, Physician [address] [place] [address] Social History Tobacco Use Types Packs/Day Years [...] on filedocumented in this encounter Care Teams Shot Blaster Relationship Specialty Start Date End Date Meka Cook MD PCP - General Pediatrics 12/10/17 04/09/19 documented as of this encounter
--- OUTSIDE RECORDS SUMMARY | 2024-04-29 08:51 | XMS_ITS | Encounter Summary ---
Author Organization [facility] Address [address] [place] [address] Phone Care Team Providers Care Medical Aide Name Role Phone Meka Cook MD Primary Care Provider Unavailab le Encounter Details Date Type Department Care Team (Late st Contact Info) Description 09/19/2012 Documentation [facility] [place] [address] [place], [place] [phone] Family Medicine, Physician [address] [place] [address] Social History Tobacco Use Types Packs/Day Years [...] on filedocumented in this encounter Care Teams Medical Aide Relationship Specialty Start Date End Date Meka Cook MD PCP - General Pediatrics 12/10/17 04/09/19 documented as of this encounter
--- OUTSIDE RECORDS SUMMARY | 2024-04-29 08:51 | XMS_ITS | Encounter Summary ---
Author Organization [facility] Address [address] [place] [address] Phone Care Team Providers Care Machine Brush Maker Name Role Phone Meka Cook MD Primary Care Provider Unavailab le Encounter Details Date Type Department Care Team (Late st Contact Info) Description 01/23/2012 Documentation [facility] [place] [address] [place], [place] [phone] Family Medicine, Physician [address] [place] [address] Social History Tobacco Use Types Packs/Day Years [...] on filedocumented in this encounter Care Teams Machine Brush Maker Relationship Specialty Start Date End Date Meka Cook MD PCP - General Pediatrics 12/10/17 04/09/19 documented as of this encounter
--- OUTSIDE RECORDS SUMMARY | 2024-04-29 08:51 | XMS_ITS | Encounter Summary ---
Author Organization [facility] Address [address] [place] [address] Phone Care Team Providers Care Service Center Representative Name Role Phone Meka Cook MD Primary Care Provider Unavailab le Encounter Details Date Type Department Care Team (Late st Contact Info) Description 01/04/2011 [place] [facility] [place] [address] [place], [place] [phone] Family Medicine, Physician [address] [place] [address] Social History Tobacco Use Types Packs/Day Years [...] on filedocumented in this encounter Care Teams Service Center Representative Relationship Specialty Start Date End Date Meka Cook MD PCP - General Pediatrics 12/10/17 04/09/19 documented as of this encounter
--- OUTSIDE RECORDS SUMMARY | 2024-04-29 08:51 | XMS_ITS | Encounter Summary ---
Author Organization [facility] Address [address] [place] [address] Phone Care Team Providers Care Special Education Math Teacher Name Role Phone Meka Cook MD Primary Care Provider Unavailab le Encounter Details Date Type Department Care Team (Late st Contact Info) Description 10/02/2013 Documentation [facility] [place] Family Medicine [address] [place], [place] [phone] Family Medicine, Physician [address] [place] [address] Social History Tobacco Use Types Packs/Day Years [...] on filedocumented in this encounter Care Teams Special Education Math Teacher Relationship Specialty Start Date End Date Meka Cook MD PCP - General Pediatrics 12/10/17 04/09/19 documented as of this encounter
--- OUTSIDE RECORDS SUMMARY | 2024-04-29 08:51 | XMS_ITS | Encounter Summary ---
Author Organization [facility] Address [address] [place] [address] Phone Care Team Providers Care Linotypist Name Role Phone Meka Cook MD Primary Care Provider Unavailab le Encounter Details Date Type Department Care Team (Late st Contact Info) Description 10/01/2011 Documentation [facility] [place] Family Medicine [address] [place], [place] [phone] Family Medicine, Physician [address] [place] [address] Social History Tobacco Use Types Packs/Day Years [...] on filedocumented in this encounter Care Teams Linotypist Relationship Specialty Start Date End Date Meka Cook MD PCP - General Pediatrics 12/10/17 04/09/19 documented as of this encounter
--- OUTSIDE RECORDS SUMMARY | 2024-04-29 08:51 | XMS_ITS | Encounter Summary ---
Author Organization [facility] Address [address] [place] [address] Phone Care Team Providers Care Telephone Repairer Name Role Phone Meka Cook MD Primary Care Provider Unavailab le Encounter Details Date Type Department Care Team (Late st Contact Info) Description 10/01/2011 [place] [facility] [place] [address] [place], [place] [phone] Family Medicine, Physician [address] [place] [address] Social History Tobacco Use Types Packs/Day Years [...] on filedocumented in this encounter Care Teams Telephone Repairer Relationship Specialty Start Date End Date Meka Cook MD PCP - General Pediatrics 12/10/17 04/09/19 documented as of this encounter
--- OUTSIDE RECORDS SUMMARY | 2024-04-29 08:51 | XMS_ITS | Encounter Summary ---
Author Organization [facility] Address [address] [place] [address] Phone Care Team Providers Care Bioanalyst Name Role Phone Meka Cook MD Primary Care Provider Unavailab le Encounter Details Date Type Department Care Team (Late st Contact Info) Description 10/01/2011 Documentation [facility] Family Medicine [address] [place], [place] [phone] Family Medicine, Physician [address] [place] [address] Social History Tobacco Use Types Packs/Day Years [...] on filedocumented in this encounter Care Teams Bioanalyst Relationship Specialty Start Date End Date Meka Cook MD PCP - General Pediatrics 12/10/17 04/09/19 documented as of this encounter
--- OUTSIDE RECORDS SUMMARY | 2024-04-29 08:51 | XMS_ITS | Encounter Summary ---
Author Organization [facility] Address [address] [place] [address] Phone Care Team Providers Care Medical Affairs Director Name Role Phone Meka Cook MD Primary Care Provider Unavailab le Encounter Details Date Type Department Care Team (Late st Contact Info) Description 12/30/2012 Documentation [facility] [place] Family Medicine [address] [place], [place] [phone] Family Medicine, Physician [address] [place] [address] Social History Tobacco Use Types Packs/Day Years [...] filedocumented in this encounter Care Teams Medical Affairs Director Relationship Specialty Start Date End Date Meka Cook MD PCP - General Pediatrics 12/10/17 04/09/19 documented as of this encounter
--- OUTSIDE RECORDS SUMMARY | 2024-04-29 08:51 | XMS_ITS | Encounter Summary ---
Author Organization [facility] Address [address] [place] [address] Phone Care Team Providers Care Access Director Name Role Phone Meka Cook MD Primary Care Provider Unavailab le Encounter Details Date Type Department Care Team (Late st Contact Info) Description 09/19/[address] [facility] [place] Family Medicine [address] [place], [place] [phone] Family Medicine, Physician [address] [place] [address] Social History Tobacco Use Types Packs/Day Years [...] on filedocumented in this encounter Care Teams Access Director Relationship Specialty Start Date End Date Meka Cook MD PCP - General Pediatrics 12/10/17 04/09/19 documented as of this encounter
--- OUTSIDE RECORDS SUMMARY | 2024-04-29 08:51 | XMS_ITS | Encounter Summary ---
Author Organization [facility] Address [address] [place] [address] Phone Care Team Providers Care Pantry Steward/Stewardess Name Role Phone Meka Cook MD Primary Care Provider Unavailab le Encounter Details Date Type Department Care Team (Late st Contact Info) Description 12/30/2012 Documentation [facility] [place] Family Medicine [address] [place], [place] [phone] Family Medicine, Physician [address] [place] [address] Social History Tobacco Use Types Packs/Day Years [...] on filedocumented in this encounter Care Teams Pantry Steward/Stewardess Relationship Specialty Start Date End Date Meka Cook MD PCP - General Pediatrics 12/10/17 04/09/19 documented as of this encounter
--- OUTSIDE RECORDS SUMMARY | 2024-04-29 08:51 | XMS_ITS | Encounter Summary ---
Author Organization [facility] Address [address] [place] [address] Phone Care Team Providers Care Occupational Therapist Rehab Manager Name Role Phone Meka Cook MD Primary Care Provider Unavailab le Encounter Details Date Type Department Care Team (Late st Contact Info) Description 09/19/2012 Documentation [facility] [place] Family Medicine [address] [place], [place] [phone] Family Medicine, Physician [address] [place] [address] Social History Tobacco Use Types Packs/Day Years [...] on filedocumented in this encounter Care Teams Occupational Therapist Rehab Manager Relationship Specialty Start Date End Date Meka Cook MD PCP - General Pediatrics 12/10/17 04/09/19 documented as of this encounter
--- OUTSIDE RECORDS SUMMARY | 2024-04-29 08:51 | XMS_ITS | Encounter Summary ---
Author Organization [facility] Address [address] [place] [address] Phone Care Team Providers Care Buffing Turner And Counter Name Role Phone Meka Cook MD Primary Care Provider Unavailab le Encounter Details Date Type Department Care Team (Late st Contact Info) Description 10/02/2013 Documentation [facility] [place] Family Medicine [address] [place], [place] [phone] Family Medicine, Physician [address] [place] [address] Social History Tobacco Use Types Packs/Day Years [...] on filedocumented in this encounter Care Teams Buffing Turner And Counter Relationship Specialty Start Date End Date Meka Cook MD PCP - General Pediatrics 12/10/17 04/09/19 documented as of this encounter
--- OUTSIDE RECORDS SUMMARY | 2024-04-29 08:51 | XMS_ITS | Encounter Summary ---
Author Organization [facility] Address [address] [place] [address] Phone Care Team Providers Care Manufacturing Engineer Automotive Name Role Phone Meka Cook MD Primary Care Provider Unavailab le Encounter Details Date Type Department Care Team (Late st Contact Info) Description 09/28/2011 Documentation [facility] Family Medicine [address] [place], [place] [phone] Family Medicine, Physician [address] [place] [address] Social History Tobacco Use Types Packs/Day Years [...] on filedocumented in this encounter Care Teams Manufacturing Engineer Automotive Relationship Specialty Start Date End Date Meka Cook MD PCP - General Pediatrics 12/10/17 04/09/19 documented as of this encounter
--- OUTSIDE RECORDS SUMMARY | 2024-04-29 08:51 | XMS_ITS | Encounter Summary ---
Author Organization [facility] Address [address] [place] [address] Phone Care Team Providers Care Financial Business Analyst Name Role Phone Meka Cook MD Primary Care Provider Unavailab le Encounter Details Date Type Department Care Team (Late st Contact Info) Description 01/23/2012 Documentation [facility] [place] Medicine [address] [place], [place] [phone] Family Medicine, Physician [address] [place] [address] Social History Tobacco Use Types Packs/Day Years [...] on filedocumented in this encounter Care Teams Financial Business Analyst Relationship Specialty Start Date End Date Meka Cook MD PCP - General Pediatrics 12/10/17 04/09/19 documented as of this encounter
--- OUTSIDE RECORDS SUMMARY | 2024-04-29 08:51 | XMS_ITS | Encounter Summary ---
Author Organization [facility] Address [address] [place] [address] Phone Care Team Providers Care Lot Attendant Name Role Phone Meka Cook MD Primary Care Provider Unavailab le Encounter Details Date Type Department Care Team (Late st Contact Info) Description 11/13/2010 Documentation [facility] [place] Family Medicine [address] [place], [place] [phone] Family Medicine, Physician [address] [place] [address] Social History Tobacco Use Types Packs/Day Years [...] on filedocumented in this encounter Care Teams Lot Attendant Relationship Specialty Start Date End Date Meka Cook MD PCP - General Pediatrics 12/10/17 04/09/19 documented as of this encounter
--- OUTSIDE RECORDS SUMMARY | 2024-04-29 08:51 | XMS_ITS | Encounter Summary ---
Author Organization [facility] Address [address] [place] [address] Phone Care Team Providers Care Self Pay Collector Name Role Phone Meka Cook MD Primary Care Provider Unavailab le Encounter Details Date Type Department Care Team (Late st Contact Info) Description 01/04/2011 Documentation [facility] [place] Family Medicine [address] [place], [place] [phone] Family Medicine, Physician [address] [place] [address] Social History Tobacco Use Types Packs/Day Years [...] on filedocumented in this encounter Care Teams Self Pay Collector Relationship Specialty Start Date End Date Meka Cook MD PCP - General Pediatrics 12/10/17 04/09/19 documented as of this encounter
--- NOTE | 2024-04-29 08:57 | AM.OFFWIN_ITS ---
Intake Vital Signs 04/29/24 08:59 Weight 94 lb BP 108/80 Blood Pressure Location Lt brachial Position Sitting Pulse 93 Pulse Source Pulse Oximeter Temp 99.0 F Temp Source Oral Pulse Oximetry (%) 99 Oxygen Delivery Method Room Air Intake Visit Reasons: EP cough, chest hurting due to cough Intake Note: Patient here for cough, chest congestion and dry throat that has been present since this past weekend. Patient Tobacco Use Status: Never used Tobacco Allergies No Known Allergies Allergy (Verified 04/29/24 08:59) Do you need a note to return to daycare/school/sports/work: Yes HPI HPI Comments History of Present Illness Details History - The patient is a 24-year-old female pr esenting with a sore throat, cough, and difficulty breathing. - Symptoms onset four days ago, beginnin g with a severe cough and painful swallowing. - The patient denies fever, with tempera ture today at 99?F. - No head congestion, mild left ear pain initially reported. - Past history includes strep throat and walking pneumonia. 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[employer], needs work note x 2 days Physical Exam General: Cooperative, healthy appearing, comfortable and no acute distress Orientation/consciousness: Patient oriented x3 Limitations: No limitations Head: Normal to inspection Ears: Hearing grossly normal bilaterally, external ears normal and TM's normal bilaterally, left TM with some erythema Nose: Normal external nose present, Normal nares present and No nasal discharge present Face and sinus: Normal facial exam and Yes sinuses nontender Mouth: Normal oral and palatal mucosa present and moist mucous membranes Throat: Yes tonsils normal, Yes uvula midline. Posterior oropharynx erythema, no exudates Eyes: Appearance normal, both eyes and all related structures Neck: Normal visual inspection, no swelling or tenderness Respiratory: Clear to auscultation bilaterally. Normal respiratory effort, able to speak in complete sentences, Actively coughing, no respiratory distress, not tachypneic, no tripod positioning and no use of accessory muscles Cardiovascular: Regular rate and rhythm. Normal S1 and S2 Skin: No rashes or lesions noted Neuro: Patient oriented x3 Extremities: Normal to inspection and Yes no clubbing, cyanosis or edema PFSH Medical History Acne comedone Underweight Surgical History No pertinent past surgical history Social History Housing: House Patient Tobacco Use Status: Never used Tobacco e-Cigarette/Vaping Use: Never Used Second Hand Smoke Exposure: No service: No Current occupational status: employed Current occupation: daycare Current occupational exposures/hazards: No Review of Systems Const All systems reviewed & are unremarkable except as noted in HPI and below Physical Exam Vital Signs: Last Vital Signs Temp 99.0 F 04/29/24 08:59 Pulse 112 H 04/29/24 08:59 BP 108/80 04/29/24 08:59 Pulse Ox 99 04/29/24 08:59 Oxygen Delivery Method Room Air 04/29/24 08:59 Assessment & Plan Assessment & Plan (1) URI, acute: Code(s): J06.9 - Acute upper respiratory infection, unspecified Plan: Plan Diagnostic evaluations including rapid strep which was negative today, influenza, and COVID-19 testing are planned to determine the cause of symptoms. 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 Pending results, management may involve home care and symptomatic treatment. Patient is advised to stay home due to potential contagion until test outcomes are known, at which point antibiotics may be prescribed if bacterial infection is confirmed. Patient should expect results by lunchtime and is advised to follow up with any queries or if symptoms worsen. Work note x 2 days provided. Patient was informed and verbally consented to the use of an ambient scribe for clinic note documentation during this visit Orders: Orders SARS-CoV2/FLU/RSV Today J06.9 - Acute upper respiratory infection, unspecified Coding Level of Care Code New Pt Level 3 (21763) Diagnoses URI, acute J06.9
[2024-04-29 08:59] VITALS: BP 108/80; PULSE 93; TEMP 37.2; O2SAT 99
== END 2024-04-29 09:50 | disposition home or self-care (01) ==
PROVIDERS: PCP Family Medicine; Visit Provider Physician Assistant
DX: J06.9 Acute upper respiratory infection, unspecified (principal); J02.9 Acute pharyngitis, unspecified

== ENCOUNTER 2024-04-29 08:35 | Outpatient (REF) | payer BC, SELFPAY ==
[2024-04-29 11:36] LABS: Influenza A PCR POSITIVE (Negative); Influenza B PCR NEGATIVE (Negative); Resp Syncy Virus RNA Qual PCR NEGATIVE (Negative); SARS COV2 PCR INHOUSE NEGATIVE (Negative)
== END 2024-04-29 08:36 | disposition home or self-care (01) ==
LOC: HO.LAB 08:35
PROVIDERS: PCP Family Medicine; Visit Provider Physician Assistant
DX: J06.9 Acute upper respiratory infection, unspecified (principal)
CPT/HCPCS: 0241U; 87880